=== PATIENT | male | born 1980 | race Caucasian/White ===

== ENCOUNTER 2018-11-21 18:53 | Emergency (ER) | payer MEDICAID ==
[2018-11-21] MEDS: FLUORESCEIN STRIP RIGHT EYE (21:32)
[2018-11-21] MEDS: TETRACAINE 0.5% 4 ML OPH RIGHT EYE (21:32)
== END 2018-11-21 22:36 | disposition home or self-care (01) ==
LOC: FTE 18:53
DX: S05.01XA Injury of conjunctiva and corneal abrasion without foreign body, right eye, initial encounter (principal); H11.31 Conjunctival hemorrhage, right eye; W26.8XXA Contact with other sharp object(s), not elsewhere classified, initial encounter; Y92.89 Other specified places as the place of occurrence of the external cause
CPT/HCPCS: 99283; Z7502